=== PATIENT | female | born 1980 | race Caucasian/White ===

== ENCOUNTER 2016-07-28 08:55 | Emergency (ER) | payer OTHER ==
[2016-07-28 09:03] VITALS: O2SAT 100
[2016-07-28] MEDS ORDERED: Naproxen 550 mg Tab PO STA (09:24)
[2016-07-28] MEDS ORDERED: Naproxen 550 mg Tab PO ONE (09:29)
--- NOTE | 2016-07-28 09:42 | C.PDOC ---
History Of Present Illness 36 y/o female presents to the ED with complains of productive cough since yesterday associated with sharp right sided chest pain (worsens with deep breaths and coughing). Pt reports having flu like symptoms in the past 10 days, which have improved. She denies fever/chills, SOB, abdominal pain, nausea/ vomiting, rashes, trauma/injuries. Time Seen by Provider: 07/28/16 09:17 Chief Complaint (Nursing): Chest Pain History Per: Patient History/Exam Limitations: no limitations Onset/Duration Of Symptoms: Hrs Current Symptoms Are (Timing): Still Present Severity: Moderate Quality: Sharp Exacerbating Factors: Deep Breathing, Other (coughing) Recent travel outside of the [place]: No Past Medical History Reviewed: Historical Data, Nursing Documentation, Vital Signs Vital Signs: Last Vital Signs Temp 97.8 F 07/28/16 09:46 Pulse 71 07/28/16 09:46 Resp 17 07/28/16 09:46 BP 112/68 07/28/16 09:46 Pulse Ox 100 07/28/16 10:57 - Medical History PMH: No Chronic Diseases Family History: States: No Known Family Hx - Social History Hx Alcohol Use: No Hx Substance Use: No - Immunization History Hx Tetanus Toxoid Vaccination: No Hx Influenza Vaccination: No Hx Pneumococcal Vaccination: No Review Of Systems Except As Marked, All Systems Reviewed And Found Negative. Constitutional: Negative for: Fever, Chills Cardiovascular: Positive for: Chest Pain. Negative for: Palpitations Respiratory: Positive for: Cough. Negative for: Shortness of Breath Gastrointestinal: Negative for: Nausea, Vomiting, Abdominal Pain, Diarrhea Skin: Negative for: Rash Physical Exam - Physical Exam Appears: Non-toxic, No Acute Distress, Other (speaking in full sentences) Skin: Warm, Dry, No Rash Oral Mucosa: Moist Throat: Normal, No Erythema, No Exudate Neck: Normal, Normal ROM, Supple Chest: Tenderness (mild right chest tenderness) Cardiovascular: Rhythm Regular, No Murmur Respiratory: Normal Breath Sounds, No Rales, No Rhonchi, No Wheezing Gastrointestinal/Abdominal: Normal Exam, Bowel Sounds, Soft, No Tenderness Extremity: Bilateral: Atraumatic Neurological/Psych: Oriented x3 ED Course And Treatment ECG: Interpreted By Me, Viewed By Me (NSR 70 bpm, normal axis, no acute ST/T wave changes) ECG Interpretation: Normal O2 Sat by Pulse Oximetry: 100 (on room air) Pulse Ox Interpretation: Normal - Radiology CXR: Interpreted by Me, Viewed By Me (no infiltrates/effusions) CXR Interpretation: Yes: No Acute Disease Progress Note: EKG and CXR ordered and reviewed. Patient given PO Naprosyn and Tessalon. Reevaluation Time: 09:45 Reassessment Condition: Improved (On reassessment, patient symptoms have improved. She was reassured that symptoms are likely viral. CXR and EKG WNL. She was given Rxs for Naprosyn and Tessalon. She was instructed to follow up with PMD/clinic in 1-2 days, and she understands she shold return to ED if symptoms worsen.) Disposition Counseled Patient/Family Regarding: Diagnosis, Need For Followup, Rx Given - Disposition Referrals: [facility] [Outside] Disposition: HOME/ ROUTINE Disposition Time: 09:45 Condition: STABLE Additional Instructions: FOLLOW UP WITH YOUR DOCTOR/CLINIC IN 1-2 DAYS USE MEDICATIONS DIRECTED RETURN TO ER IF SYMPTOMS WORSEN Prescriptions: Naproxen [Naprosyn Tab] 375 mg PO BID PRN #15 tab PRN Reason: pain Benzonatate [Tessalon Perles] 100 mg PO BID PRN #15 sgl PRN Reason: Cough Instructions: Chest Wall Pain (ED), Viral Syndrome (ED) Print Language: GREENLANDIC - POA Present On Arrival: None - Clinical Impression Clinical Impression: Pleuritic pain, Viral upper respiratory infection - Scribe Statement The provider has reviewed the documentation as recorded by the Tana Reardon Provider Attestation: All medical record entries made by the Tana were at my direction and personally dictated by me. I have reviewed the chart and agree that the record accurately reflects my personal performance of the history, physical exam, medical decision making, and the department course for this patient. I have also personally directed, reviewed, and agree with the discharge instructions and disposition.
[2016-07-28 09:47] VITALS: BP 112/68; PULSE 71; RESP 17; TEMP 97.8
--- NOTE | 2016-07-28 10:06 | RAD ---
HISTORY: cough, chest pain COMPARISON: 10/15/2015 TECHNIQUE: Chest PA and lateral FINDINGS: LUNGS: No active pulmonary disease. Bibasilar breast and nipple shadows. PLEURA: No significant pleural effusion identified. No pneumothorax apparent. CARDIOVASCULAR: Normal. OSSEOUS STRUCTURES: No significant abnormalities. VISUALIZED UPPER ABDOMEN: Normal. OTHER FINDINGS: None. IMPRESSION: No active disease.
== END 2016-07-28 09:48 | disposition home or self-care (01) ==
LOC: C.ER 08:55
DX: J06.9 Acute upper respiratory infection, unspecified (principal); R07.1 Chest pain on breathing